=== PATIENT | female | born 1995 | race African-American/Black ===

== ENCOUNTER 2025-09-25 21:30 | Emergency (ER) | payer OTHER ==
[~2025-09-25] VITALS: Ht 157.5 cm; Wt 63.6 kg
[2025-09-25 21:44] VITALS: TEMP 98
[2025-09-25 22:20] LABS: PLATELET COUNT (AUTO) 174 K/uL (150-450); RED BLOOD CELL COUNT(AUTO) 4.27 MIL/uL (4.00-5.20); RED CELL DISTRIBUTION WIDTH 13.6 % (11.5-14.5); WHITE BLOOD COUNT (AUTO) 6.6 K/uL (4.5-11.0)
[2025-09-25 22:30] LABS: CALCIUM, TOTAL 9.2 mg/dL (8.8-10.5); CREATININE 0.57 mg/dL (0.60-1.30); GLOMERULAR FILTR. RATE CALC > 60 mL/min (>60); GLUCOSE,RANDOM 89 mg/dL (70-110); SODIUM SERUM 140 mmol/L (136-145); UREA NITROGEN, BLOOD 6 mg/dL (7-18)
[2025-09-25 22:56] LABS: ASPARTATE AMINOTRANSFERASE 14.0 U/L (15-37); TOTAL PROTEIN, SERUM 7.5 g/dL (6.4-8.2)
[2025-09-25] MEDS: SODIUM CHLORIDE 0.9% 1,000 ML IV ONE (23:44)
[2025-09-25] MEDS: ONDANSETRON HCL 4 MG/2 ML VIAL IVP ONE (23:45)
[2025-09-26] MEDS ORDERED: ONDA-104 PO (01:54)
[2025-09-26 01:57] VITALS: BP 120/86; PULSE 68; RESP 18; O2SAT 98
== END 2025-09-26 02:57 | disposition home or self-care (01) ==
LOC: EDSEX 21:33 → EMS 21:33
DX: O21.0 Mild hyperemesis gravidarum (principal); N89.8 Other specified noninflammatory disorders of vagina; Z98.890 Other specified postprocedural states; Z3A.09 9 weeks gestation of pregnancy
CPT/HCPCS: 99285; 96374; 96361; 80048; 80076; 83690; 84702; 85025; 36415; 76801; J2405; J7030